=== PATIENT | female | born 1955 | race Caucasian/White ===

== ENCOUNTER 2017-10-12 17:23 | Emergency (ER) | payer OTHER ==
[~2017-10-12] VITALS: Ht 160 cm; Wt 66.7 kg
[~2017-10-12 17:23] MED LIST: ARIMIDEX1 M1 PO; BONIVA150 M1 PO; DOCUSATE SODIU100 M3 PO; LORAZEPAM1 MG PO; MAGNESIUM500 M2 PO; MELOXICAM15 M1 PO; NEXIUM40 M1 PO; PERCOCET 325 MG1 TA2 PO; PERCOCET 5-3251 EACH PO; PRILOSEC 20MG C20 MG PO; TRAZODONE HCL50 M1 PO; VITAMIN B-121000 MC3 PO; VITAMIN D1000 UNIT PO; WARFARIN SODIUM5 M1 PO; ZOLOFT25 MG PO; ZOLOFT50 M1 PO
--- NOTE | 2017-10-12 19:14 | ED MVC/FALL/TRAUMA COMPLAINT ---
History of Present Illness General Chief Complaint: Fall Stated Complaint: FELL ON DECK,HEAD,R KNEE/WRIST,FOOT PAIN -LOC Source: patient Exam Limitations: no limitations Vital Signs & Intake/Output Vital Signs & Intake/Output Vital Signs Date Time Temp Pulse Resp B/P B/P Pulse O2 O2 Flow FiO2 Mean Ox Delivery Rate 10/12 1937 108/64 10/12 1808 98.1 85 12 93/32 94 Room Air ED Intake and Output 10/13 0000 10/12 1200 Intake Total 0 Output Total Balance 0 Intake, Oral 0 Patient 147 lb Weight Weight Reported by Patient Measurement Method Allergies Coded Allergies: Iodinated Contrast- Oral and IV Dye (IODINATED CONTRAST MEDIA - IV DYE) (IVP DYE 10/21/15) Iodine and Iodide Containing Produc (UNKNOWN 10/21/15) Penicillins (HIVES 10/12/17) adhesive tape (RASH - PAPER TAPE 10/12/17) hydrocodone (From Vicodin) (VOMITING 10/12/17) PER ON-Q BALL ORDER SHEET OF 10/31/15 (SJS) Reconcile Medications Anastrozole (Arimidex) 1 MG TABLET 1 TAB PO DAILY BREAST CANCER (Reported) Cholecalciferol (Vitamin D3) (Vitamin D) 1,000 UNIT TABLET 1 TAB PO DAILY SUPPLEMENT (Reported) Cyanocobalamin (Vitamin B-12) 1,000 MCG TABLET 1 TAB PO DAILY SUPPLEMENT ( Reported) Esomeprazole (Nexium) 40 MG CAPSULE.DR 1 CAP PO DAILY SLEEP APNEA/GI ( Reported) Gabapentin 600 MG TABLET 1 TAB PO QAM NERVE PAIN (Reported) Ibandronate Sodium (Boniva) 150 MG TABLET 1 TAB PO Q30D OSTEOPOROSIS ( Reported) on the same date with a full glass of water at least 30 minutes before first food or drink of the day; remain in an upright posi Magnesium Oxide (Magnesium) 500 MG CAPSULE 1 CAP PO DAILY SUPPLEMENT ( Reported) Meloxicam 15 MG TABLET 1 TAB PO DAILY PAIN/INFLAMMATION (Reported) Oxycodone HCl/Acetaminophen (Percocet 5-325 MG Tablet) 5 MG-325 MG TABLET 1 TAB PO BID PRN pain Sertraline HCl (Zoloft) 100 MG TABLET 1 TAB PO DAILY MENTAL HEALTH (Reported) Trazodone HCl 50 MG TABLET 1 TAB PO QPM SLEEP (Reported) Triage Note: PT STATES SHE FELL ON HER DECK AND HIT HER HEAD RIGHT SIDE. PT C/O RIGHT KNEE,WRIST AND FOOT PAIN. PT STATES THIS ALL HAPPEND ABOUT 1630 DEFORMITY NOTED RIGHT WRIST. -LOC Triage Nurses Notes Reviewed? yes Onset: Gradual Duration: minute(s): Timing: single episode today Severity: moderate Injuries/Fall Location: head, upper extremity, lower extremity Method of Injury: fall Loss of Consciousness: no loss of consciousness HPI: 62-year-old female with history of arthritis presents emergency department complaining of fall prior to arrival. Patient states that she was sitting on her deck and when she got up she tripped on her sandal and fell onto the right side. Patient states she hit the right side of her head so injured her right knee, right wrist, right foot at level of first MTP. There was no loss of consciousness or blackout. Patient reports gradually increasing pain since the fall. He does report mild headache, denies neck pain. She has been able to ambulate since the fall. She denies numbness, tingling, vomiting. Past History Travel History Traveled to [place] past 21 day No Medical History Any Pertinent Medical History? 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 No Review of Systems Review of Systems Constitutional: Reports: no symptoms. Eyes: Reports: no symptoms. Ears, Nose, Throat, Mouth: Reports: no symptoms. Respiratory: Reports: no symptoms. Cardiovascular: Reports: no symptoms. Gastrointestinal/Abdominal: Reports: no symptoms. Genitourinary: Reports: no symptoms. Musculoskeletal: Reports: see HPI. Skin: Reports: no symptoms. Neurological/Psychological: Reports: see HPI. All Other Systems: Reviewed and Negative Physical Exam Physical Exam General Appearance: well developed/nourished, no apparent distress, alert, awake Head: MILD ecchymosis with swelling to right forehead and face Eyes: Bilateral: normal appearance, PERRL, EOMI. Ears, Nose, Throat, Mouth: hearing grossly normal, moist mucous membrane Neck: normal inspection, supple, full range of motion, no midline tenderness Respiratory: normal breath sounds, no respiratory distress, lungs clear Cardiovascular: regular rate/rhythm, normal peripheral pulses Peripheral Pulses: 2+ radial (R), 2+ dorsalis pedis (R) Back: normal inspection, normal range of motion, no vertebral tenderness Extremities: right wrist with deformity and tenderness, limited ROM d/t pain, elbow and hand are nontender right knee with superficial abrasion and anterior tenderness, ROM intact right foot with tenderness medially at MTP joint, ROM intact Neurologic/Psych: awake, alert, oriented 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 No CVA/TIA Diagnosis No Sepsis Present: No Sepsis Focused Exam Completed? No Progress Differential Diagnosis: C/T/L spine injury, ext injury, ICH, spinal cord injury Plan of Care: Orders Procedure Date/time Status XRY-WRIST COMPLETE-RIGHT 10/12 1810 Active XRY-KNEE COMPLETE RIGHT 10/12 1810 Active XRY-FOOT COMPLETE, RIGHT 10/12 1810 Active Patient's imaging studies here in the emergency department showed no acute findings. Patient is able to ambulate without difficulty, she is neurologically intact, she answers questions readily. Manual blood pressure reading is stable. She was prescribed Medications to help with her pain and will follow-up with her primary care doctor. The patient agrees with the plan of care. Diagnostic Imaging: Viewed by Me: Radiology Read, CT Scan. Discussed w/RAD: Radiology Read, CT Scan. Radiology Impression: PATIENT: CRISPIN VALLEJO PRESENT AGE: 62 PATIENT ACCOUNT NO: [id number] : 53 LOCATION: [facility] ORDERING PHYSICIAN: Inocencia MIRZA SERVICE DATE: 10/12/17 EXAM TYPE: CAT - CT CERV SPINE WO IV CONTRAST; CT HEAD WO IV CONTRAST EXAMINATIONS: CT HEAD WITHOUT CONTRAST AND CT CERVICAL SPINE WITHOUT CONTRAST CLINICAL INFORMATION: Status post fall with right-sided head strike COMPARISON: None. TECHNIQUE: Contiguous helical images of the brain were obtained without IV contrast. Contiguous helical images of the cervical spine were obtained without IV contrast. Multiplanar reconstructions were performed. DLP: 973 mGy-cm FINDINGS: Images are mildly degraded by patient motion. There are no pathologic extra- axial fluid collections. The lateral, third, fourth ventricles are nondilated and concordant with the appearance of the sulci. There is no evidence for acute intraparenchymal hemorrhage or infarct. There is neither mass nor mass effect. There is no shift of midline structures. The paranasal sinuses and mastoid air cells are clear. There are no osseous lesions. Small right sided anterior frontal soft tissue swelling. No associated fracture. There is no prevertebral soft tissue swelling. There is relative preservation of the intervertebral disc space at the C2-C3 and C4-C5 levels. There is minimal narrowing at the C4-C5 level. There is mild reversal of the normal cervical lordosis at C5-C6 and again at C7-T1 partially related to retrolisthesis at the C4-C5 level measuring 2 mm.. There is mild loss of the vertebral body heights of the C5 and C6 vertebral bodies which demonstrates prominent anterior osteophytes as well as smaller posterior osteophytes. No acute fracture is demonstrated. There is extensive diffuse facet arthropathy throughout the cervical spine. Normal thyroid gland. Prominent biapical pleural-parenchymal thickening, right greater than left. The visualized lung apices are otherwise clear. IMPRESSION: 1. No acute intracranial hemorrhage. Mild right sided facial swelling without associated fracture. 2. Extensive multilevel spondylosis involving the cervical spine without definitive acute fracture or subluxation demonstrated. Reversal of the normal cervical lordosis appears to be related to degenerative changes and not significantly progressed compared to the 2006 study. DICTATED BY: Vicenta Narvaez MD DATE/TIME DICTATED:10/12/171915 GIRL FRIDAY:ANUJ DATE/TIME TRANSCRIBED:1915 CONFIDENTIAL, DO NOT COPY WITHOUT APPROPRIATE AUTHORIZATION. < Electronically signed in Other Vendor System> SIGNED BY: Vicenta Narvaez MD 1928, PATIENT: CRISPIN VALLEJO PRESENT AGE: 62 PATIENT ACCOUNT NO: [id number] : 53 LOCATION: [facility] ORDERING PHYSICIAN: Inocencia MIRZA SERVICE DATE: 10/12/17 EXAM TYPE: RAD - XRY-WRIST COMPLETE-RIGHT EXAMINATION: XR WRIST, RIGHT CLINICAL INFORMATION: Trauma COMPARISON: None TECHNIQUE: PA, lateral, and oblique views of the right wrist. FINDINGS: No acute fracture or dislocation. There are marked osteoarthritic changes on the radioscaphoid articulation as well as the 1st CMC joint. Marked narrowing at the junction of the capitate and lunate as well as the hamate and triquetrum. IMPRESSION: Severe degenerative changes as described with no acute fracture or dislocation. DICTATED BY: Mariusz Balbuena MD DATE/TIME DICTATED: 10/12/171957 GIRL FRIDAY:ANUJ DATE/TIME TRANSCRIBED:10/12/171957 CONFIDENTIAL, DO NOT COPY WITHOUT APPROPRIATE AUTHORIZATION. <Electronically signed in Other Vendor System> SIGNED BY: Mariusz Balbuena MD 10/12/172005, PATIENT: CRISPIN VALLEJO PRESENT AGE: 62 PATIENT ACCOUNT NO: [id number] : 53 LOCATION: [facility] ORDERING PHYSICIAN: Inocencia MIRZA SERVICE DATE: 10/12/17 EXAM TYPE: RAD - XRY-FOOT COMPLETE, R EXAMINATION: XR FOOT, RIGHT CLINICAL INFORMATION: Right foot pain after a fall COMPARISON: None TECHNIQUE: AP, lateral, and oblique views of the right foot. FINDINGS: No acute fracture or dislocation. There is severe osteoarthritis of the 1st MTP joint. Mild degenerative changes throughout the midfoot. No radiopaque foreign body. IMPRESSION: No fracture. Severe 1st MTP joint osteoarthritis. DICTATED BY: Mariusz Balbuena MD DATE/TIME DICTATED:02/28 GIRL FRIDAY:ANUJ DATE/TIME TRANSCRIBED:10/12/172002 CONFIDENTIAL, DO NOT COPY WITHOUT APPROPRIATE AUTHORIZATION. <Electronically signed in Other Vendor System> SIGNED BY: Mariusz Balbuena MD 10/12/172007, PATIENT: CRISPIN VALLEJO PRESENT AGE: 62 PATIENT ACCOUNT NO: [id number] : 53 LOCATION: [facility] ORDERING PHYSICIAN: Inocencia MIRZA SERVICE DATE: 10/12/17 EXAM TYPE: RAD - XRY-KNEE COMPLETE RIGHT EXAMINATION: XR KNEE, RIGHT CLINICAL INFORMATION: Pain after a fall COMPARISON: 08/21/2010 TECHNIQUE: Four views of the right knee. FINDINGS: Medial compartment narrowing. Marginal osteophytes of all 3 compartments which have progressed. There is no fracture or significant joint effusion. No radiopaque foreign body. IMPRESSION: Tricompartmental osteoarthritis. No fracture. DICTATED BY: Mariusz Balbuena MD DATE/TIME DICTATED:10/12/172004 GIRL FRIDAY:ANUJ DATE/TIME TRANSCRIBED:10/12/172004 CONFIDENTIAL, DO NOT COPY WITHOUT APPROPRIATE AUTHORIZATION. <Electronically signed in Other Vendor System> SIGNED BY: Mariusz Balbuena MD 10/12/172009 Departure Departure Disposition: HOME OR SELF CARE Condition: Stable Clinical Impression Primary Impression: Fall Qualifiers: Encounter type: initial encounter Qualified Code: W19.XXXA - Unspecified fall, initial encounter Secondary Impressions: Muscle strain Osteoarthritis Qualifiers: Osteoarthritis location: unspecified site Osteoarthritis type: unspecified Qualified Code: M19.90 - Unspecified osteoarthritis, unspecified site Referrals: Isabelle Connors MD (PCP/Family) Additional Instructions: Take Percocet as prescribed as needed for pain. Follow up with your primary care doctor. Return if worsening symptoms or concerns. Please note that there might be incidental findings in your evaluation that are unrelated to the current emergency department visit. Please notify your primary care doctor about this emergency department visit in order to obtain and review all of the testing performed so that these incidental findings can be monitored as needed. If you had an x-ray performed, please understand that some fractures may not be seen on the initial set of x-rays. If your symptoms persist you might need a repeat set of x-rays to check for such a fracture. If you had a laceration evaluated, please understand that foreign bodies such as glass or wood may not be visible to the naked eye or on plain x-rays. If the wound becomes red, swollen, increasingly more painful or if there is any drainage from the wound, please have it reevaluated by a physician for the possibility of a retained foreign body. If you're unable to follow up as outlined in the discharge instructions please return to the emergency department. Thank you for choosing the [facility] Emergency Department for your care. It was a pleasure to serve you today. Departure Forms: Customer Survey General Discharge Information Prescriptions: Current Visit Scripts Oxycodone HCl/Acetaminophen (Percocet 5-325 MG Tablet) 1 TAB PO BID PRN pain #10 TAB
--- NOTE | 2017-10-12 19:29 | CT SCAN REPORT ---
EXAMINATIONS: CT HEAD WITHOUT CONTRAST AND CT CERVICAL SPINE WITHOUT CONTRAST CLINICAL INFORMATION: Status post fall with right-sided head strike COMPARISON: None. TECHNIQUE: Contiguous helical images of the brain were obtained without IV contrast. Contiguous helical images of the cervical spine were obtained without IV contrast. Multiplanar reconstructions were performed. DLP: 973 mGy-cm FINDINGS: Images are mildly degraded by patient motion. There are no pathologic extra-axial fluid collections. The lateral, third, fourth ventricles are nondilated and concordant with the appearance of the sulci. There is no evidence for acute intraparenchymal hemorrhage or infarct. There is neither mass nor mass effect. There is no shift of midline structures. The paranasal sinuses and mastoid air cells are clear. There are no osseous lesions. Small right sided anterior frontal soft tissue swelling. No associated fracture. There is no prevertebral soft tissue swelling. There is relative preservation of the intervertebral disc space at the C2-C3 and C4-C5 levels. There is minimal narrowing at the C4-C5 level. There is mild reversal of the normal cervical lordosis at C5-C6 and again at C7-T1 partially related to retrolisthesis at the C4-C5 level measuring 2 mm.. There is mild loss of the vertebral body heights of the C5 and C6 vertebral bodies which demonstrates prominent anterior osteophytes as well as smaller posterior osteophytes. No acute fracture is demonstrated. There is extensive diffuse facet arthropathy throughout the cervical spine. Normal thyroid gland. Prominent biapical pleural-parenchymal thickening, right greater than left. The visualized lung apices are otherwise clear. IMPRESSION: 1. No acute intracranial hemorrhage. Mild right sided facial swelling without associated fracture. 2. Extensive multilevel spondylosis involving the cervical spine without definitive acute fracture or subluxation demonstrated. Reversal of the normal cervical lordosis appears to be related to degenerative changes and not significantly progressed compared to the 2006 study.
[2017-10-12 19:37] VITALS: BP 108/64
--- NOTE | 2017-10-12 20:06 | RADIOLOGY REPORT ---
EXAMINATION: XR WRIST, RIGHT CLINICAL INFORMATION: Trauma COMPARISON: None TECHNIQUE: PA, lateral, and oblique views of the right wrist. FINDINGS: No acute fracture or dislocation. There are marked osteoarthritic changes on the radioscaphoid articulation as well as the 1st CMC joint. Marked narrowing at the junction of the capitate and lunate as well as the hamate and triquetrum. IMPRESSION: Severe degenerative changes as described with no acute fracture or dislocation.
--- NOTE | 2017-10-12 20:08 | RADIOLOGY REPORT ---
EXAMINATION: XR FOOT, RIGHT CLINICAL INFORMATION: Right foot pain after a fall COMPARISON: None TECHNIQUE: AP, lateral, and oblique views of the right foot. FINDINGS: No acute fracture or dislocation. There is severe osteoarthritis of the 1st MTP joint. Mild degenerative changes throughout the midfoot. No radiopaque foreign body. IMPRESSION: No fracture. Severe 1st MTP joint osteoarthritis.
[2017-10-12] MEDS ORDERED: ZOLOFT100 M1 PO (20:10)
--- NOTE | 2017-10-12 20:10 | RADIOLOGY REPORT ---
EXAMINATION: XR KNEE, RIGHT CLINICAL INFORMATION: Pain after a fall COMPARISON: 08/21/2010 TECHNIQUE: Four views of the right knee. FINDINGS: Medial compartment narrowing. Marginal osteophytes of all 3 compartments which have progressed. There is no fracture or significant joint effusion. No radiopaque foreign body. IMPRESSION: Tricompartmental osteoarthritis. No fracture.
[2017-10-12] MEDS ORDERED: MELOXICAM15 M1 PO (20:11)
[2017-10-12] MEDS ORDERED: GABAPENTIN600 M1 PO (20:11)
[2017-10-12] MEDS ORDERED: PERCOCET 5-3251 EACH PO (20:24)
== END 2017-10-12 20:34 ==
LOC: ERH 17:23
DX: S09.90XA Unspecified injury of head, initial encounter (principal); S89.91XA Unspecified injury of right lower leg, initial encounter; S69.90XA Unspecified injury of unspecified wrist, hand and finger(s), initial encounter; S99.921A Unspecified injury of right foot, initial encounter; M19.90 Unspecified osteoarthritis, unspecified site; F17.210 Nicotine dependence, cigarettes, uncomplicated; W18.09XA Striking against other object with subsequent fall, initial encounter
CPT/HCPCS: 73110-RT; 73562-RT; 73630-RT